=== PATIENT | male | born 2000 ===

== ENCOUNTER 2020-08-03 21:27 | Emergency (ER) | payer BC ==
[2020-08-03 22:35] LABS: Urine Blood Negative (Negative); Urine Glucose Negative (Negative); Urine Protein 1+ (Negative)
[2020-08-03 22:50] LABS: Absolute Lymphocytes (CBC) 1.7 K/uL (0.7-4.9); Basophils % 0.4 % (0-1.3); Lymphocytes % 20.4 % (15.3-44.8); MPV 9.9 fL (7.6-11.3); RBC Red Blood Cell Count 4.76 M/uL (4.33-5.43)
[2020-08-03 22:53] LABS: Protime INR 1.27
[2020-08-03 22:57] LABS: Barbiturates NEGATIVE (NEGATIVE); Benzodiazepines NEGATIVE (NEGATIVE); Cocaine NEGATIVE (NEGATIVE); METHAMPHETAM NEGATIVE (NEGATIVE); Methadone NEGATIVE (NEGATIVE); Opiates NEGATIVE (NEGATIVE); Phencyclidine NEGATIVE (NEGATIVE); THC Cannibis POSITIVE (NEGATIVE)
[2020-08-03 23:06] LABS: ALT/SGPT 17 U/L (12-78); AST/SGOT 16 U/L (15-37); Albumin 4.5 g/dL (3.4-5.0); Alkaline Phosphatase 55 U/L (45-117); BUN Blood Urea Nitrogen 11 mg/dL (7-18); Bicarbonate 27 mmol/L (21-32); Bilirubin Direct 0.2 mg/dL (0-0.2); Glucose Level 101 mg/dL (74-106); Magnesium 2.4 mg/dL (1.8-2.4); NT PRO-BNP 42 pg/mL (<125); Potassium 3.2 mmol/L (3.5-5.1); Protein, Total 8.2 g/dL (6.4-8.2); Sodium Level 140 mmol/L (136-145); Troponin (Emerg Dept Use Only) < 0.02 ng/mL (0.0-0.045)
--- NOTE | 2020-08-04 01:12 | EDPHYS ---
Physician Documentation [facility] Name: Mendez Lui Age: 20 yrs Sex: Male : 2000 Arrival Date: 08/03/2020 Time: 21:30 Bed 2 Private MD: ED Physician David Ames HPI: 08/04 00:44 This 20 yrs old Male presents to ER via Ambulatory with complaints of Chest Pain, mh7 Numbness Of Arm, Nausea. 00:44 The patient or guardian reports chest pain that is located primarily in the substernal mh7 area. The pain radiates to both arms. Associated signs and symptoms: Pertinent positives: nausea, Pertinent negatives: abdominal pain, cough, diaphoresis, dizziness, headache, lower extremity pain, lower extremity swelling, lightheadedness, near syncope, palpitations, recent travel, shortness of breath, syncope, vomiting. The chest pain is described as sharp. Duration: The patient or guardian reports a single episode, that is now resolved, that lasted 1 hour(s). Modifying factors: The symptoms are alleviated by nothing. the symptoms are aggravated by nothing. Severity of pain: At its worst the pain was moderate yesterday, in the emergency department the pain has resolved. Historical: - Allergies: 08/03 22:01 PENICILLINS; ea - PMHx: 22:01 Heart Murmur; ea - Immunization history:: Adult Immunizations up to date. - Social history:: Smoking status: Patient reports the use of cigarette tobacco products, smokes one pack cigarettes per day. ROS: 08/04 00:44 Constitutional: Negative for fever, chills, and weight loss, Eyes: Negative for injury, mh7 pain, redness, and discharge, ENT: Negative for injury, pain, and discharge, Neck: Negative for injury, pain, and swelling, Respiratory: Negative for shortness of breath, cough, wheezing, and pleuritic chest pain, Back: Negative for injury and pain, : Negative for injury, bleeding, discharge, and swelling, MS/Extremity: Negative for injury and deformity, Skin: Negative for injury, rash, and discoloration, Neuro: Negative for headache, weakness, numbness, tingling, and seizure, Psych: Negative for depression, anxiety, suicide ideation, homicidal ideation, and hallucinations, Allergy/Immunology: Negative for hives, rash, and allergies, Endocrine: Negative for neck swelling, polydipsia, polyuria, polyphagia, and marked weight changes, Hematologic/Lymphatic: Negative for swollen nodes, abnormal bleeding, and unusual bruising. Abdomen/GI: Negative for abdominal pain, vomiting, diarrhea, constipation, abdominal cramps, abdominal distension, anorexia, dysphagia, hematemesis, black/tarry stool, rectal pain, rectal bleeding, bowel incontinence, flatulence. Exam: 00:44 Constitutional: This is a well developed, well nourished patient who is awake, alert, mh7 and in no acute distress. Head/Face: Normocephalic, atraumatic. Eyes: Pupils equal round and reactive to light, extra-ocular motions intact. Lids and lashes normal. Conjunctiva and sclera are non-icteric and not injected. Cornea within normal limits. Periorbital areas with no swelling, redness, or edema. Neck: Trachea midline, no thyromegaly or masses palpated, and no cervical lymphadenopathy. Supple, full range of motion without nuchal rigidity, or vertebral point tenderness. No Meningismus. Chest/axilla: Normal chest wall appearance and motion. Nontender with no deformity. No lesions are appreciated. Cardiovascular: Regular rate and rhythm with a normal S1 and S2. No gallops, murmurs, or rubs. Normal PMI, no JVD. No pulse deficits. Respiratory: Lungs have equal breath sounds bilaterally, clear to auscultation and percussion. No rales, rhonchi or wheezes noted. No increased work of breathing, no retractions or nasal flaring. Abdomen/GI: Soft, non-tender, with normal bowel sounds. No distension or tympany. No guarding or rebound. No evidence of tenderness throughout. Back: No spinal tenderness. No costovertebral tenderness. Full range of motion. Skin: Warm, dry with normal turgor. Normal color with no rashes, no lesions, and no evidence of cellulitis. MS/ Extremity: Pulses equal, no cyanosis. Neurovascular intact. Full, normal range of motion. Neuro: Awake and alert, GCS 15, oriented to person, place, time, and situation. Cranial nerves II-XII grossly intact. Motor strength 5/5 in all extremities. Sensory grossly intact. Cerebellar exam normal. Normal gait. Psych: Awake, alert, with orientation to person, place and time. Behavior, mood, and affect are within normal limits. Vital Signs: 08/03 21:58 BP 105 / 57; Pulse 57; Resp 18; Temp 97.9; Pulse Ox 99% ; Weight 63.5 kg; Height 6 ft. ea (182.88 cm); Pain 6/10; 08/04 00:10 BP 126 / 89; Pulse 57; Resp 17; Pulse Ox 97% ; rr5 01:30 BP 111 / 59; Pulse 60; Resp 16; Pulse Ox 98% ; rr5 08/03 21:58 Body Mass Index 18.99 (63.50 kg, 182.88 cm) ea MDM: 01:09 Differential diagnosis: acute myocardial infarction, acute pericarditis, anxiety, chest mh7 wall pain, costochondritis, myocarditis, pericarditis, pneumonia, pneumothorax, thoracic aortic disection. HEART Score: History: Slightly Suspicious (0), ECG: Normal (0), Age: < or = 45 years (0), Risk Factors: 1 or 2 risk factors (1), [+ Family HX] Troponin: < or = 1 x Normal Limit (0), Total Score = 1. Data reviewed: vital signs, nurses notes, lab test result(s), cardiac enzymes, CBC, electrolytes, urine drug screen, EKG, radiologic studies, CT scan, plain films. Data interpreted: Pulse oximetry: on room air is 99 %. Interpretation: normal. Counseling: I had a detailed discussion with the patient and/or guardian regarding: the historical points, exam findings, and any diagnostic results supporting the discharge/admit diagnosis, lab results, radiology results, the need for outpatient follow up, to return to the emergency department if symptoms worsen or persist or if there are any questions or concerns that arise at home. Response to treatment: the patient's symptoms have resolved after treatment, the patient's blood pressure is in an acceptable range, mental status has returned to baseline, the patient no longer shows bradycardia, the patient is not short of breath, the patient is not tachycardic, the patient's pain is gone, the patient's temperature has normalized. 01:11 Patient medically screened. [facility] 08/03 22:19 Order name: Basic Metabolic Panel; Complete Time: 23:16 ea 08/03 22:19 Order name: CBC with Diff; Complete Time: 23:16 08/03 22:19 Order name: LFT's; Complete Time: 23:16 08/03 22:19 Order name: Magnesium; Complete Time: 23:16 08/03 22:19 Order name: NT PRO-BNP; Complete Time: 23:16 08/03 22:19 Order name: PT-INR; Complete Time: 23:16 08/03 22:19 Order name: Troponin (emerg Dept Use Only); Complete Time: 23:16 08/03 22:19 Order name: XRAY Chest (1 view) 08/03 22:19 Order name: EKG; Complete Time: 22:20 08/03 22:19 Order name: Cardiac monitoring; Complete Time: 22:28 08/03 22:22 Order name: Urine Drug Screen; Complete Time: 23:16 08/03 22:35 Order name: Urine Dipstick-Ancillary; Complete Time: 23:16 [facility] 08/03 23:27 Order name: CT Aorta for Dissection [facility] 08/03 22:19 Order name: EKG - Nurse/Tech; Complete Time: 22:28 08/03 22:19 Order name: IV Saline Lock; Complete Time: 22:28 08/03 22:19 Order name: Labs collected and sent; Complete Time: :28 08/03 22:19 Order name: O2 Per Protocol; Complete Time: 22:28 08/03 22:19 Order name: O2 Sat Monitoring; Complete Time: 22:28 Administered Medications: 01:40 Drug: Potassium Chloride 40 mEq Route: PO; rr5 01:58 Follow up: Response: Medication administered at discharge. rr5 Disposition: 08/04/20 01:11 Discharged to Home. Impression: Chest pain, unspecified. - Condition is Stable. - Discharge Instructions: Nonspecific Chest Pain, [id number]. - Medication Reconciliation Form, Thank You Letter, Antibiotic Education, Prescription Opioid Use form. - Follow up: Private Physician; When: 1 - 2 days; Reason: Worsening of condition, Recheck today's complaints, Continuance of care, Re-evaluation by your physician. - Problem is new. - Symptoms are resolved. Signatures: Dispatcher [facility] Center[facility] Eaton RN RN Russell Cardona RN RN rr5 David Ames MD MD mh7 Corrections: (The following items were deleted from the chart) 01:42 01:11 08/04/2020 01:11 Discharged to Home. Impression: Chest pain, unspecified. rr5 Condition is Stable. Forms are Medication Reconciliation Form, Thank You Letter, Antibiotic Education, Prescription Opioid Use. Follow up: Private Physician; When: 1 - 2 days; Reason: Worsening of condition, Recheck today's complaints, Continuance of care, Re-evaluation by your physician. Problem is new. Symptoms are resolved. mh7
--- NOTE | 2020-08-04 01:12 | ER ---
Nurse's Notes [facility] Name: Mendez Lui Age: 20 yrs Sex: Male : 2000 Arrival Date: 08/03/2020 Time: 21:30 Bed 2 Private MD: Diagnosis: Chest pain, unspecified Presentation: 08/03 21:58 Chief complaint: Patient states: Reports he started having chest pain that started ea about two hours ago reports nausea and swollen lymph node to left groin. Coronavirus screen: At this time, the client does not indicate any symptoms associated with coronavirus-19. Ebola Screen: No symptoms or risks identified at this time. Initial Sepsis Screen: Does the patient meet any 2 criteria? No. Patient's initial sepsis screen is negative. Does the patient have a suspected source of infection? No. Patient's initial sepsis screen is negative. Risk Assessment: Do you want to hurt yourself or someone else? Patient reports no desire to harm self or others. Onset of symptoms was August 03, 2020. 21:58 Method Of Arrival: Ambulatory ea 21:58 Acuity: NORA 3 ea Historical: - Allergies: 22:01 PENICILLINS; ea - PMHx: 22:01 Heart Murmur; ea - Immunization history:: Adult Immunizations up to date. - Social history:: Smoking status: Patient reports the use of cigarette tobacco products, smokes one pack cigarettes per day. Screenin:00 Abuse screen: Denies threats or abuse. Nutritional screening: No deficits noted. ea Tuberculosis screening: No symptoms or risk factors identified. Fall Risk None identified. Assessment: 22:47 General: Appears in no apparent distress. comfortable, Behavior is calm, cooperative, rr5 appropriate for age. Pain: Complains of pain in chest Pain currently is 5 out of 10 on a pain scale. Quality of pain is described as aching, Pain began gradually, Is intermittent. Neuro: Level of Consciousness is awake, alert, obeys commands, Oriented to person, place, time. Cardiovascular: Reports chest pain, Capillary refill < 3 seconds Patient's skin is warm and dry. Respiratory: Airway is patent Respiratory effort is even, unlabored, Respiratory pattern is regular, symmetrical. GI: Reports nausea. : No signs and/or symptoms were reported regarding the genitourinary system. EENT: No signs and/or symptoms were reported regarding the EENT system. Derm: Skin temperature is warm. Musculoskeletal: Capillary refill < 3 seconds, Reports pain in left arm. 23:50 Reassessment: Patient appears in no apparent distress at this time. No changes from rr5 previously documented assessment. Patient is alert, oriented x 3, equal unlabored respirations, skin warm/dry/pink. 08/04 00:20 Reassessment: Patient appears in no apparent distress at this time. Patient is alert, rr5 oriented x 3, equal unlabored respirations, skin warm/dry/pink. awaiting for results. 01:40 Reassessment: Patient appears in no apparent distress at this time. Patient is alert, rr5 oriented x 3, equal unlabored respirations, skin warm/dry/pink. discharge instruction given and explained without complaints made. Vital Signs: 08/03 21:58 BP 105 / 57; Pulse 57; Resp 18; Temp 97.9; Pulse Ox 99% ; Weight 63.5 kg; Height 6 ft. ea (182.88 cm); Pain 6/10; 08/04 00:10 BP 126 / 89; Pulse 57; Resp 17; Pulse Ox 97% ; rr5 01:30 BP 111 / 59; Pulse 60; Resp 16; Pulse Ox 98% ; rr5 06 21:58 Body Mass Index 18.99 (63.50 kg, 182.88 cm) ea ED Course: 08/03 21:30 Patient arrived in ED. bp1 22:00 Triage completed. ea 22:00 Patient maintains SpO2 saturation greater than 95% on room air. ea 22:28 Russell Eldridge RN is Primary Nurse. rr5 22:28 Inserted saline lock: 20 gauge in left forearm, using aseptic technique. Blood rr5 collected. 22:28 Patient has correct armband on for positive identification. Bed in low position. Call rr5 light in reach. meat slicer on. Pulse ox on. NIBP on. 22:30 David Ames MD is Attending Physician. mh7 22:33 XRAY Chest (1 view) In Process Unspecified. EDMS 23:00 Arm band placed on right wrist. rr5 08/04 00:26 CT Aorta for Dissection In Process Unspecified. EDMS 01:40 No provider procedures requiring assistance completed. IV discontinued, intact, rr5 bleeding controlled, No redness/swelling at site. Pressure dressing applied. Administered Medications: 01:40 Drug: Potassium Chloride 40 mEq Route: PO; rr5 01:58 Follow up: Response: Medication administered at discharge. rr5 Outcome: 01:11 Discharge ordered by . 7 01:40 Discharged to home ambulatory, with family. rr5 01:40 Condition: stable 01:40 Discharge instructions given to patient, Instructed on discharge instructions, follow up and referral plans. Demonstrated understanding of instructions, follow-up care. 01:42 Patient left the ED. rr5 Signatures: Dispatcher [employer] EDCitlalli Eaton RN RN ea Roque, Raymond, RN RN rr5 Toya Posey Maurice, MD MD 7
[2020-08-04] MEDS ORDERED: POTASSIUM CL SA 10 MEQ TAB PO ONE (01:39)
[2020-08-04 03:08] VITALS: BP 105/57; TEMP 97.9; O2SAT 99
--- NOTE | 2020-08-04 11:49 | RAD REPORT ---
EXAM DESCRIPTION: RAD - Chest Single View - 08/03/2020 10:36 pm CLINICAL HISTORY: CHEST PAIN Chest pain. COMPARISON: No comparisons FINDINGS: Portable technique limits examination quality. The lungs are grossly clear. The heart is normal in size. No displaced fractures. IMPRESSION: No acute intrathoracic process suspected.
--- NOTE | 2020-08-05 15:16 | RAD REPORT ---
EXAM DESCRIPTION: CTA Chest, Abdomen, and Pelvis COMPARISON: None. CLINICAL HISTORY: CHEST PAIN TECHNIQUE: CTA of the chest, abdomen and pelvis was acquired with IV contrast material. Coronal and sagittal reconstructions were obtained. Automated exposure control was utilized on this examination a s a dose lowering technique. CTA FINDINGS: No dissection or aneurysm. No occlusion or significant stenosis. NONVASCULAR CHEST FINDINGS: Heart and mediastinum: Heart size is normal. No lymphadenopathy. Thyroid gland: Visualized portions are normal. Lungs: Clear. Airways: No filling defects. No bronchiectasis. Pleura: No pneumothorax. No significant pleural effusion. Musculoskeletal and soft tissues: Within normal limits for age. CHEST IMPRESSION: No acute chest process. NONVASCULAR ABDOMEN & PELVIS FINDINGS: Liver: Normal. Gallbladder and biliary: Normal gallbladder. Unremarkable biliary tree. Pancreas: Normal. Spleen: Normal. Kidneys and adrenal glands: Normal adrenal glands. Normal kidneys Stomach and Small Bowel: The stomach and small bowel are normal. Urinary bladder: Normal. Prostate/Male Urogenital: Normal. Colon and Appendix: The colon is unremarkable. No evidence of appendicitis. Peritoneal cavity: No ascites or free air. Retroperitoneum and lymph nodes: Normal. Musculoskeletal and soft tissues: Soft tissues are unremarkable. No aggressive bone lesions. No com pression fracture. ABDOMEN AND PELVIS IMPRESSION: Note acute intra-abdominal abnormality. Electronically signed by: Ang Zheng MD 08/04/2020 12:43 AM CDT Due to temporary technical issues with the PACS/Fluency reporting system, reports are being signed by the in house radiologists without review as a courtesy to insure prompt reporting. The interpreting radiologist is fully responsible for the content of the report.
== END 2020-08-04 01:42 | disposition home or self-care (01) ==
LOC: ER 21:27
DX: R07.9 Chest pain, unspecified (principal); R01.1 Cardiac murmur, unspecified; F17.210 Nicotine dependence, cigarettes, uncomplicated; Z88.0 Allergy status to penicillin
CPT/HCPCS: 93005 ×2; 85025; 80048; 36415; 83735; 85610; 80076; 80307 ×8; 81003; 84484; 83880; 71275; 74175; 71045; 99285; Q9967